=== PATIENT | male | born 1960 | race Two or more races ===

== ENCOUNTER 2020-05-21 13:40 | Outpatient (CLI) | payer OTHER | END 2020-05-21 13:46 | disposition home or self-care (01) | LOC: SONOGRAMA 13:40 → MAMO-SONO 13:45 → SONOGRAMA 13:46 | PROVIDERS: ATTEND Internal Medicine Nephrology | DX: N20.0 Calculus of kidney (principal); R31.0 Gross hematuria; I10 Essential (primary) hypertension; E11.65 Type 2 diabetes mellitus with hyperglycemia ==